=== PATIENT | male | born 2000 | race Caucasian/White ===

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

== ENCOUNTER 2021-02-12 15:27 | Emergency (ER) | payer MEDICAID, SELFPAY ==
[2019-05-18 12:53] VITALS: BMI 30.7
[2021-02-12 15:27] VITALS: BP 159/79; PULSE 85; RESP 16; TEMP 35.9; O2SAT 98; BMI 29.0
--- NOTE | 2021-02-12 16:13 | EX.ED.UPPERE ---
HPI History of Present Illness Chief Complaint: Upper Extremity Injury Informant: patient Narrative Narrative: Patient is a right-hand dominant 20-year-old male presenting with right arm pain. Patient was at a pitching tryouts for [employer] team when he was throwing baseball and felt a pop in his right elbow. Patient did not have significant pain at that time but it progressed as he continued to try to throw the baseball. He took ibuprofen and iced it was continued up pain. He is concerned he might of injured something significantly so he came to the emergency room. He states the pain radiates from his elbow down his hand. 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 Denies any numbness or tingling. No other complaints at this time. PFSH PFSH Home Medications Hydrocodone Bit/Homatropine [Hycodan Syrup] 5 ml PO Q4H PRN PRN #60 udc 03/03/17 [Rx Last Taken Unknown] benzonatate 100 mg PO 4X/DAY PRN PRN 03/03/17 [History Last Taken Unknown] cefdinir 300 mg PO BID 03/03/17 [History Last Taken Unknown] guaifenesin [Mucinex] 1,200 mg PO BID 03/03/17 [History Last Taken Unknown] inhalational spacing device [Space Chamber Plus] #1 spacer 03/03/17 [Rx Last Taken Unknown] prednisone 0 mg PO DAILY 03/03/17 [History Last Taken Unknown] Allergy/AdvReac Type Severity Reaction Status Date / Time No Known Allergies Allergy Verified 02/12/21 15:29 Social History (Updated 05/18/19 @ 13:33 by Jonathan PURI, PA) Smoking Status: Never smoker ROS ROS ED Constitutional Constitutional ED: Denies chills, fever(s) or malaise Eyes Eyes: Denies blurry vision or loss of vision Cardiovascular Cardiovascular: Denies chest pain or dizziness Respiratory/Chest Respiratory/Chest: Denies cough or dyspnea Gastrointestinal Gastrointestinal: Denies nausea or vomiting Musculoskeletal Musculoskeletal: Reports other Details: Right arm pain ; Denies arthralgias or myalgias Integumentary Denies rash or wounds Neurologic Neurologic: Denies focal weakness, headache(s), paresthesias or weakness Psychiatric Psychiatric: Denies anxiety or behavioral changes EXAM Physical Exam Const Vital Signs: 02/12/21 15:27 Temperature 96.7 F L Temperature Source Temporal Pulse Rate 85 Respiratory Rate 16 Blood Pressure 159/79 H Blood Pressure Mean 105 Pulse Ox 98 Oxygen Delivery Method Room Air Positive well developed General Appearance ED: well developed HEENT normocephalic and atraumatic Eyes PERRL and EOMs intact bilaterally Neck full ROM and supple Chest Wall inspection of chest normal Resp normal respiratory effort and clear to auscultation bilaterally Cardio regular rate and regular rhythm Back/Spine Cervical Spine: Negative for cervical spine tenderness Lumbar Spine / Lower Back: Negative for lumbar spinal tenderness Extremity General Extremety ED: Negative for edema General Extremity: Negative for edema Right Upper Extremity: shoulder joint Shoulder Joint Exam - Right: other (Normal range of motion of the shoulder. No bony tenderness. No tenderness of the shoulder.) and upper arm Positive for other (Tenderness to palpation of the head of the brachioradialis muscle and area of insertion of the triceps muscle. Range of motion of the elbow is intact. No tenderness to the bony processes.) Neuro no focal motor deficits and no sensory deficits noted Sensorium / Orientation: alert Motor Exam: strength 5/5 throughout and muscle tone normal throughout Psych mental status grossly normal Skin Lesions: no lesions Rashes: no rashes MDM MDM MDM Narrative Medical decision making narrative: Patient evaluated for right elbow injury associated with throwing a baseball. He has no bony deformities or abnormalities. He does not have tenderness over the epicondyles and I do not think this is epicondylitis. I am concerned for possible sprain versus tendon rupture. X-ray does not show any acute fracture or dislocation. X-ray interpreted by myself as well as radiologist. Patient was treated with Tylenol as he took Motrin prior to arrival. He is offered a sling but declined. He is given referral to orthopedics for outpatient follow-up. Patient is neurovascularly intact. His compartments are soft. He is stable for outpatient follow-up. He is counseled on signs and symptoms requiring return to emergency room. He verbalized agreement understand this plan. Discharged home in stable addition. Radiography Diagnostic Testing: Right elbow?normal Treatment and Re-Evaluation Comments:: Tylenol, x-ray Discharge home with orthopedic referral Discharge Plan Triage Chief Complaint: Upper Extremity Injury ED Provider: Gisele Reid Dx/Rx/DC Orders Clinical Impression: Right elbow pain Instructions: ED Sprain, Elbow, ED Tendonitis Prescriptions: No Action prednisone 1 MG tablet 0 mg PO DAILY RF: 0 benzonatate 100 MG capsule 100 mg PO 4X/DAY PRN PRN (Reason: Cough) RF: 0 cefdinir 300 MG capsule 300 mg PO BID RF: 0 guaifenesin [Mucinex] 600 MG Tab.Er.12h 1,200 mg PO BID RF: 0 Hydrocodone Bit/Homatropine [Hycodan Syrup] 5 ML Udc 5 ml PO Q4H PRN PRN (Reason: Cough) Qty: 60 RF: 0 (DME) inhalational spacing device [Space Chamber Plus] 1 EACH Spacer 1 ea miscellaneous UD Qty: 1 RF: 0 Primary Care Provider: Alok Guerrero Referrals: Jonathan Mccurdy MD [STAFF PHYSICIAN] - Alok Guerrero MD [Primary Care Provider] - Activity Restrictions/Additional Instructions: Rest your elbow. Alternate Tylenol and ibuprofen for pain and anti-inflammatory properties. Is not clear if this is a sprain versus inflammation of the tendon/tendon injury. Follow-up with orthopedics. Disposition Disposition: Home, self care Discharge Date/Time: 02/12/21 17:41
--- NOTE | 2021-02-12 16:20 | RAD_ITS ---
STUDY: X-RAY - RIGHT ELBOW REASON FOR EXAM: Male, 20 years old. Injury/Pain TECHNIQUE: 3 view(s) of the elbow. COMPARISON: None. FINDINGS: Normal visualized humerus, radius and ulna. Normal radiocapitellar and ulnotrochlear articulations. The soft tissue structures are unremarkable. RAD/Elbow min 3 Views IMPRESSION: Normal x-ray examination of the elbow. Electronically Signed: Hugh Kerr MD at 16:31 EDT Tel , Service support ,
[2021-02-12] MEDS: Acetaminophen 500 MG Tablet 1000 MG PO (17:34)
== END 2021-02-12 17:41 | disposition home or self-care (01) ==
PROVIDERS: Emergency Provider Emergency Medicine; PCP Family Medicine
DX: M25.521 Pain in right elbow (principal)
CPT/HCPCS: 73080; 99282

== ENCOUNTER 2021-02-21 03:33 | Emergency (ER) | payer MEDICAID, SELFPAY ==
[2021-02-21 03:33] VITALS: BP 165/91; PULSE 100; RESP 18; TEMP 36.3; O2SAT 99; BMI 30.9
[2021-02-21 03:35] VITALS: BP 165/91; PULSE 100; RESP 18; TEMP 36.3; O2SAT 99
--- NOTE | 2021-02-21 03:57 | EDS_ITS ---
HPI History of Present Illness Chief Complaint: Cellulitis Informant: patient Onset/Context/Timing Onset: Days (2) Context: Sudden Onset (w/ progression) Timing: Continuous Quality of Pain: - (stinging) Location: R foot Current Severity: Mild Maximum Severity: Mild Worsened by: nothing Relieved by: nothing Associated Symptoms Associated Symptoms: Positive for - (rash, swelling); Negative for Parasthesia, Weakness and Loss of Funtion Narrative Narrative: Patient states he was awakened 2 nights ago with a sudden stinging pa in in his right dorsal forefoot. Over the last 2 days, it has become red and swollen and very itchy, with the redness and itching spreading up just proximal to the ankle which made him concerned about an infection. He denies any fevers or chills or systemic symptoms or drainage from the area. He did not see if there was anything responsible for this. He was now walking outside barefoot recently. He denies any recent injuries. He denies contact with any plants that he knows of on his foot. He denies rashes anywhere else. [facility] Medical History Asthma Ectodermal dysplasia Home Medications albuterol sulfate [ProAir HFA] 2 puff INHALATION Q6H PRN 02/21/21 [History Last Taken Unknown] cephalexin 500 mg PO Q6 7 Days #28 capsule 02/21/21 [Rx Last Taken Unknown] hydrocortisone 1 applic TOPICAL BID PRN #20 g 02/21/21 [Rx Last Taken Unknown] Allergy/AdvReac Type Severity Reaction Status Date / Time No Known Allergies Allergy Verified 02/12/21 15:29 Social History Smoking Status: Never smoker ROS ROS ED Constitutional Constitutional ED: Denies chills or fever(s) Musculoskeletal Musculoskeletal: Reports extremity pain; Denies neck pain Integumentary Reports as per HPI and rash; Denies Abrasions or wounds Neurologic Neurologic: Denies paresthesias or weakness EXAM Physical Exam Const Vital Signs: 02/21/21 03:33 02/21/21 03:35 Temperature 97.4 F L 97.4 F L Temperature Source Temporal Temporal Pulse Rate 100 100 Respiratory Rate 18 18 Blood Pressure 165/91 H 165/91 H Blood Pressure Mean 115 115 Pulse Ox 99 99 Oxygen Delivery Method Room Air Room Air Positive well nourished and well developed General Appearance ED: well developed and NAD Neck full ROM and supple Back/Spine normal ROM and normal to inspection Extremity full ROM and normal capillary refill Extremity Narrative: Full range of motion, no bony tenderness including the right foot. Neuro oriented x3, no focal motor deficits and no sensory deficits noted Sensorium / Orientation: alert Psych mental status grossly normal and thought process normal Skin no wounds Skin Narrative: Erythema throughout the peroneal aspect of the right dorsal foot, progressing to the lateral malleolus and just proximal. The nidus appears to be just proximal to the fourth toe. None of these areas are tender despite the significant blanching erythema and local swelling. The entire area is consistent with a large wheal and flare reaction. No lymphangitis. MDM MDM MDM Narrative Medical decision making narrative: My suspicion is that this is a local reaction to an insect sting. However since the history is very lacking and it continues to spread up beyond his ankle, I will put him on an antibiotic to cover the pos sibility of this being infected. Patient is comfortable with that plan he was also prescribed 2.5% hydrocortisone cream to use to help control the itching, I do not think any systemic steroids. Discharge Plan Triage Chief Complaint: Cellulitis ED Provider: Vega Joseph Dx/Rx/DC Orders Clinical Impression: Local reaction to insect sting Instructions: ED Insect Sting, Local Reaction Prescriptions: New cephalexin [cephalexin] 500 MG capsule 500 mg PO Q6 7 Days Qty: 28 RF: 0 hydrocortisone 2.5 % cream 1 applic topical BID PRN (Reason: itching) Qty: 20 RF: 0 No Action albuterol sulfate [ProAir HFA] 90 mcg/actuation Hfa Aerosol Inhaler 2 puff INHALATION Q6H PRN (Reason: Shortness Of Breath) RF: 0 Primary Care Provider: Alok Guerrero Referrals: Alok Guerrero MD [Primary Care Provider] - 3-5 Days if not improving Disposition Disposition: Home, self care
[2021-02-21] MEDS: Cephalexin 250 MG Capsule 500 MG PO (04:16)
== END 2021-02-21 04:21 | disposition home or self-care (01) ==
LOC: ED 04:09
PROVIDERS: Emergency Provider Emergency Medicine; PCP Family Medicine
DX: T63.481A Toxic effect of venom of other arthropod, accidental (unintentional), initial encounter (principal); J45.909 Unspecified asthma, uncomplicated; Z79.51 Long term (current) use of inhaled steroids
CPT/HCPCS: 99283

== ENCOUNTER 2021-09-01 11:56 | Emergency (ER) | payer MEDICAID, SELFPAY ==
[2021-09-01 11:56] VITALS: BP 169/103; PULSE 89; RESP 16; TEMP 36.6; O2SAT 96; BMI 32.1
--- NOTE | 2021-09-01 12:10 | RAD_ITS ---
EXAM: XR RIGHT FOOT COMPLETE, 3 OR MORE VIEWS : 1999 CLINICAL INDICATION: PAIN TECHNIQUE: Frontal, lateral and oblique views of the right foot. This report was created using [employer] report generation technology. COMPARISON: None. FINDINGS: BONES/JOINTS: Unremarkable. No acute fracture. No subluxation. Normal alignment. Preservation of the joint space. No sclerotic or destructive changes observed. SOFT TISSUES: Unremarkable. No soft tissue swelling or gas. No radiopaque foreign body. RAD/Foot min 3 Views IMPRESSION: Negative right foot x-rays. at 1235 Reported and signed by: Spencer Lim MD Electronically Signed: Spencer Lim MD at 12:34 EST Tel , Service support ,
--- NOTE | 2021-09-01 12:10 | RAD_ITS ---
EXAM: XR LEFT FOOT COMPLETE, 3 OR MORE VIEWS : 1999 CLINICAL INDICATION: PAIN TECHNIQUE: Frontal, lateral and oblique views of the left foot. This report was created using [employer] report generation technology. COMPARISON: None. FINDINGS: BONES/JOINTS: Unremarkable. No acute fracture. No subluxation. Normal alignment. Preservation of the joint space. No sclerotic or destructive changes observed. SOFT TISSUES: Unremarkable. No soft tissue swelling or gas. No radiopaque foreign body. RAD/Foot min 3 Views IMPRESSION: Negative left foot x-rays. at 1234 Reported and signed by: Spencer Lim MD Electronically Signed: Spencer Lim MD at 12:33 EST Tel , Service support ,
--- NOTE | 2021-09-01 13:41 | EDS_ITS ---
HPI History of Present Illness Chief Complaint: Lower Extremity Injury Informant: patient Narrative Narrative: Patient was playing basketball yesterday. While he was playing he started get some soreness of his feet. He stopped for a while and then went back and played more. Overnight they can get more sore. He feels that they are a little bit swollen even. No swelling of the legs. No chest pain. No erythema. No fevers or chills. Walking makes it worse and rest makes it better. No history of this. PFSH [facility] Medical History Asthma Ectodermal dysplasia Home Medications naproxen 500 mg PO BID #20 tab 09/01/21 [Rx Last Taken Unknown] Allergy/AdvReac Type Severity Reaction Status Date / Time No Known Allergies Allergy Verified 09/01/21 12:11 Social History Smoking Status: Never smoker ROS ROS ED Cardiovascular Cardiovascular: Denies chest pain Respiratory/Chest Respiratory/Chest: Denies cough, dyspnea or sputum Gastrointestinal Gastrointestinal: Denies nausea or vomiting Musculoskeletal Musculoskeletal: Reports arthralgias; Denies back pain or neck pain Integumentary Denies abscess, Abrasions or rash Neurologic Neurologic: Denies paresthesias or weakness Hematologic/Lymphatic Hematologic/Lymphatic: Denies easy bleeding or easy bruising EXAM Physical Exam Const Vital Signs: 09/01/21 11:56 Temperature 97.8 F Temperature Source Temporal Pulse Rate 89 Respiratory Rate 16 Blood Pressure 169/103 H Blood Pressure Mean 125 Pulse Ox 96 Oxygen Delivery Method Room Air Patient does have alopecia. Positive well nourished and well developed General Appearance ED: well developed and NAD HEENT normocephalic and atraumatic Resp normal respiratory effort Back/Spine no CVA tenderness Lumbar Spine / Lower Back: Negative for lumbar spinal tenderness Extremity Extremity Narrative: No notable swelling is seen. No erythema. There is some mild soreness to the midfoot area and toward the lateral aspect on both feet. The left is more in uncomfortable than the right. First MTP is not red or inflamed. He does report a family history of gout. He has never had it. No distended veins. No calf tenderness, tenderness along the deep venous system, cord, or asymmetry. Neuro oriented x3 Sensorium / Orientation: alert Psych mental status grossly normal Skin no wounds Lesions: no lesions Rashes: no rashes Trauma: Negative for abrasion, laceration or puncture MDM MDM MDM Narrative Medical decision making narrative: Three-view x-ray of left and right foot show no sign of acute fracture. I think this is likely an overuse from playing basketball and jumping. It is sore to bear weight. There is no sign of infection. No indication of bilateral DVTs occurring. I think rest, ice, nonsteroidals will be appropriate. Certainly if this changes he needs to return. He should look out for signs of fever, redness, swelling, any swelling of the leg or other concerns. He should follow up with his physician. Radiography Diagnostic Testing: Clinical Impression(s) from Imaging Studies Foot X-Ray 09/01/21 12:10 IMPRESSION: Negative right foot x-rays. at 1235 Reported and signed by: Spencer Lim MD Electronically Signed: Spencer Lim MD at 12:34 EST Tel , Service support , Foot X-Ray 09/01/21 12:10 IMPRESSION: Negative left foot x-rays. at 1234 Reported and signed by: Spencer Lim MD Electronically Signed: Spencer Lim MD at 12:33 EST Tel , Service support , Discharge Plan Triage Chief Complaint: Lower Extremity Injury ED Provider: Orlin Reece Dx/Rx/DC Orders Clinical Impression: Bilateral foot pain Instructions: ED Foot Sprain Prescriptions: New naproxen 500 MG tablet 500 mg PO BID Qty: 20 RF: 0 Primary Care Provider: Alok Guerrero Referrals: Alok Guerrero MD [Primary Care Provider] - 3-5 Days if not improving Disposition Disposition: Home, Self Care
[2021-09-01 13:51] VITALS: BP 127/63; PULSE 72; RESP 15; O2SAT 98
== END 2021-09-01 13:53 | disposition home or self-care (01) ==
PROVIDERS: Emergency Provider Emergency Medicine; PCP Family Medicine
DX: M79.672 Pain in left foot (principal); M79.671 Pain in right foot; J45.909 Unspecified asthma, uncomplicated
CPT/HCPCS: 73630; 99282

== ENCOUNTER 2021-10-03 13:13 | Emergency (ER) | payer MEDICAID, SELFPAY ==
[2021-10-03 13:13] VITALS: BP 145/88; PULSE 101; RESP 18; TEMP 37.4; O2SAT 94; BMI 30.3
--- NOTE | 2021-10-03 14:36 | EDS_ITS ---
HPI History of Present Illness Chief Complaint: General Illness Narrative Narrative: Patient presenting secondary to generalized illness. Patient reports that his mother tested positive for coronavirus. Patient reports that over the course of the last 5 days he has had cough body aches nausea without vomiting decreased p.o. intake headache and some minimal loose stools. 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 Review of systems otherwise negative. [facility] Medical History Asthma Ectodermal dysplasia Home Medications naproxen 500 mg PO BID #20 tab 09/01/21 [Rx Last Taken Unknown] Allergy/AdvReac Type Severity Reaction Status Date / Time No Known Allergies Allergy Verified 10/03/21 13:15 Social History Smoking Status: Never smoker ROS ROS ED Constitutional Constitutional ED: Reports chills and fever(s) ENT ENT ED: Denies rhinorrhea Cardiovascular Cardiovascular: Denies chest pain Respiratory/Chest Respiratory/Chest: Reports cough Gastrointestinal Gastrointestinal: Reports diarrhea Genitourinary Genitourinary ED: Denies dysuria or hematuria Musculoskeletal Musculoskeletal: Reports myalgias Integumentary Denies rash Neurologic Neurologic: Denies paresthesias or weakness Psychiatric Psychiatric: Denies depression Endocrine Endocrinology: Denies fatigue Allergic/Immunologic Allergic/Immunologic ED: Denies urticaria EXAM Physical Exam Const Vital Signs: 10/03/21 13:13 10/03/21 13:56 Temperature 99.3 F H Temperature Source Temporal Pulse Rate 101 H Respiratory Rate 18 Respiratory Effort Normal Non-Labored Respiratory Pattern Normal Blood Pressure 145/88 H Blood Pressure Mean 107 Pulse Ox 94 Oxygen Delivery Method Room Air Positive well nourished and well developed General Appearance ED: well developed and NAD HEENT Reports moist mucous membranes Negative for trauma or tenderness Eyes EOMs intact bilaterally Neck no lymphadenopathy, supple and no JVD Chest Wall inspection of chest normal Resp normal respiratory effort and clear to auscultation bilaterally Cardio regular rate, regular rhythm, no murmurs and peripheral pulses 2+ throughout GI normal to inspection, nondistended, normoactive bowel sounds, non-tender and no masses Palpation: soft Back/Spine normal to inspection Extremity normal to inspection General Extremety ED: Negative for tenderness Neuro oriented x3 and no sensory deficits noted Sensorium / Orientation: alert Motor Exam: strength 5/5 throughout Psych mental status grossly normal Skin no rashes or lesions noted MDM MDM MDM Narrative Medical decision making narrative: Patient is a well-appearing male with stable vitals with exposure to coronavirus. His Covid status was confirmed. All believe further work-up is indicated. As the patient has a underlying history of immunosuppression I will refer the patient for monoclonal antibodies. Patient was educated on conservative management measures Discharge Plan Triage Chief Complaint: General Illness ED Provider: Sampson Lassiter Dx/Rx/DC Orders Clinical Impression: COVID-19 Instructions: Coronavirus Disease 2019 (COVID-19): Caring for Yourself or Others Prescriptions: No Action naproxen 500 MG tablet 500 mg PO BID Qty: 20 RF: 0 Primary Care Provider: Alok Guerrero Referrals: Alok Guerrero MD [Primary Care Provider] - 1-2 Weeks Disposition Disposition: Home, Self Care
[2021-10-03 14:44] VITALS: BP 134/75; PULSE 78; RESP 16; O2SAT 97
== END 2021-10-03 14:45 | disposition home or self-care (01) ==
PROVIDERS: Emergency Provider Emergency Medicine; PCP Family Medicine
DX: U07.1 COVID-19 (principal); Q82.4 Ectodermal dysplasia (anhidrotic); J45.909 Unspecified asthma, uncomplicated; Z79.1 Long term (current) use of non-steroidal anti-inflammatories (NSAID)
CPT/HCPCS: 87426; 99282